=== PATIENT | female | born 1955 | race Caucasian/White ===

== ENCOUNTER 2019-01-28 16:42 | Emergency (ER) | payer OTHER ==
[~2019-01-28] VITALS: Ht 160 cm; Wt 86.6 kg
[2019-01-28 16:59] VITALS: Ht 160 cm; Wt 86.6 kg
[2019-01-28 18:13] LABS: microscopic required? YES; urine erythrocyte 3+ (NEGATIVE)
[2019-01-28 18:30] VITALS: BP 140/89
== END 2019-01-28 18:30 | disposition home or self-care (01) ==
LOC: ED 16:42
DX: N10 Acute pyelonephritis (principal); I10 Essential (primary) hypertension; F32.9 Major depressive disorder, single episode, unspecified
CPT/HCPCS: J0696

== ENCOUNTER 2019-02-23 22:03 | Emergency (ER) | payer OTHER ==
[~2019-02-23] VITALS: Ht 160 cm; Wt 87.1 kg
[2019-02-23 22:33] VITALS: BP 130/62; Ht 160 cm; Wt 87.1 kg
== END 2019-02-23 23:55 | disposition home or self-care (01) ==
LOC: ED 22:03
DX: S93.401A Sprain of unspecified ligament of right ankle, initial encounter (principal); S83.91XA Sprain of unspecified site of right knee, initial encounter; I10 Essential (primary) hypertension; F32.9 Major depressive disorder, single episode, unspecified; W01.0XXA Fall on same level from slipping, tripping and stumbling without subsequent striking against object, initial encounter; Y93.89 Activity, other specified; Y92.89 Other specified places as the place of occurrence of the external cause; Y99.8 Other external cause status
CPT/HCPCS: J1885